=== PATIENT | female | born 1980 | race African-American/Black ===

== ENCOUNTER 2023-01-16 06:13 | Emergency (ER) | payer OTHER, SELFPAY | END 2023-01-16 07:06 | disposition home or self-care (01) | LOC: ERS 06:13 | DX: G56.01 Carpal tunnel syndrome, right upper limb (principal); W01.0XXA Fall on same level from slipping, tripping and stumbling without subsequent striking against object, initial encounter; Y92.091 Bathroom in other non-institutional residence as the place of occurrence of the external cause ==